=== PATIENT | male | born 1980 | race Caucasian/White ===

== ENCOUNTER 2022-12-02 12:22 | Emergency (ER) | payer SELFPAY ==
[2022-12-02 12:26] VITALS: BP 159/137; PULSE 72; RESP 18; TEMP 37.1; O2SAT 100
--- NOTE | 2022-12-02 12:45 | DI.RAD_ITS ---
Exam(s) XR CHEST 2V PA LATERAL EXAM: XR CHEST 2V PA LATERAL CLINICAL HISTORY: left sided chest pain s/p fall TECHNIQUE: 2D digital imaging was performed. COMPARISON: No exams were available for comparison FINDINGS: HEART: Normal size. Aorta: Not dilated. PULMONARY VASCULATURE: Normal. LUNGS: Clear. PLEURAL SPACE: No pleural effusion or pneumothorax. BONE:Unremarkable for age. IMPRESSION: No acute abnormality. DATA REPOSITORY: RADIATION DOSE DELIVERED:
--- NOTE | 2022-12-02 12:53 | ED.GENADUL_ITS ---
Discharge Plan Disposition Patient Disposition: Home Condition: Stable Discharge Details Chief Complaint: Fall/Non TraumaCriteria Clinical Impression: Contusion of rib on left side Primary Care Provider: Jesus Badillo ED Provider: Aleksandr Bahena Discharge Instructions Instructions: Rib Contusion (ED) Additional Instructions: your xray did not show concerning findings at this time if not better in a week follow up with your primary care provider or express care if you feel more ill, have severe worsening pain or new symptoms such as abdominal pain return to the emergency department Medical Decision Making 42 yo male who denies chronic medical problems though doesn't get routine medical visits, who comes in with left sided chest pain. He states it started two days ago when he was carrying things and tripped over some brush falling back and twisted his left chest, did not hit his head and no loc. No head pain, neck pain, back pain, abdomen pain or extremity pain since. He has pain in the left mid clavicular line over 4-6 ribs, no palpable or visible deformity. CAox4 on arrival, no c/t/l spine tenderness, no signs of trauma to the head, no abdomen tenderness. Clear lungs. Suspect rib contusion but will xray to evaluate for fx and less likely ptx. He has full rom of his shoulders and upper extremities so doubt muscle or ligamentous tear. imaging unremarkable, pt stable with no new pain, suspect rib contusion, stable for d/c and advised to f/u with pcp if not improving within a week, return precautions given Differential Diagnosis Differential Diagnosis: rib contusion, chest wall strain Imaging Data Radiologic Study: Attestation: I personally reviewed and interpreted this imaging study as follows: Imaging: X-Ray Radiologist's impression: no acute findings HPI General Mode of arrival: ambulatory . Date/Time Provider Initiated Documentation: 12/02/22 12:26 . Limitations to Documentation: no limitations . Information obtained by: patient . History of Present Illness 42 year old M presents to the emergency department with the chief complaint of rib pain s/p fall 2 days ago, described as moderate, Quality is described as aching, Patient started experiencing this day(s) (2) and it has been constant. No relieving factors improve symptom(s), No exacerbating factors reported . Patient notes no other symptoms.. Patient did receive the following treatments prior to arrival, none General Stated Complaint: Fall/Non TraumaCriteria ATIF: 3 Review of Systems All systems reviewed & are unremarkable except as noted in HPI and below Constitutional Constitutional: Denies chills, Denies fever(s) and Denies weakness Cardiovascular Cardiovascular: Denies dyspnea Respiratory Respiratory: Denies dyspnea Gastrointestinal Gastrointestinal: Denies abdominal pain, Denies nausea and Denies vomiting Genitourinary Genitourinary: Denies dysuria Musculoskeletal Musculoskeletal: Denies joint swelling Integumentary/Breasts Skin/Breast: Denies rash Neurologic Neurologic: Denies weakness Endocrine Endocrine: Denies cold intolerance PFSH All Active Problems (Updated 12/02/22 @ 13:44 by Aleksandr Bahena MD) Contusion of rib on left side (Acute) Social History Smoking/Tobacco Use Status: Current every day Smoking risk assessment performed?: Yes Alcohol Intake: current Alcohol Intake frequency: holidays/special occasions only Substance use type: marijuana Do you feel safe at home: Yes Do you feel safe in your relationship?: Yes Exam Const General: no acute distress Orientation: alert HENMT Head: normal to inspection Ears: external ears normal General nose exam: external nose normal Mouth: moist mucous membranes Eyes General: appearance normal, both eyes and all related structures Neck Neck: normal visual inspection Chest Chest: tenderness Resp Effort & Inspection: normal respiratory effort and able to speak in complete sentences Cardio Rate: regular rate Skin General skin exam: no rashes or lesions noted Neuro General: patient alert and patient oriented x3 Extrem General: normal to inspection Psych Mental Status: mental status grossly normal Course Vital Signs Vital signs: Vital Signs Temperature 37.1 C 12/02/22 12:26 Pulse 72 12/02/22 12:26 Respiratory Rate 18 12/02/22 12:26 Blood Pressure 159/137 H 12/02/22 12:26 Pulse Oximetry 100 12/02/22 12:26 Temperature 37.1 C 12/02/22 12:26 Pulse 72 12/02/22 12:26 Respiratory Rate 18 12/02/22 12:26 Respiratory Effort Normal 12/02/22 12:29 Blood Pressure 159/137 H 12/02/22 12:26 Blood Pressure Position Sitting 12/02/22 12:26 Pulse Oximetry 100 12/02/22 12:26 Oxygen Delivery Method Room Air 12/02/22 12:26 Oxygen Flow Rate 0 12/02/22 12:26 Pain Level 0 12/02/22 12:26
== END 2022-12-02 13:46 | disposition home or self-care (01) ==
PROVIDERS: Emergency Provider Emergency Medicine; PCP Internal Medicine
DX: R07.9 Chest pain, unspecified (principal); S20.212A Contusion of left front wall of thorax, initial encounter; W01.0XXA Fall on same level from slipping, tripping and stumbling without subsequent striking against object, initial encounter; Y93.89 Activity, other specified; F17.200 Nicotine dependence, unspecified, uncomplicated
CPT/HCPCS: 99283; 71046